=== PATIENT | female | born 1970 | race Caucasian/White ===

== ENCOUNTER 2022-09-04 16:35 | Emergency (ER) | payer OTHER, SELFPAY ==
--- NOTE | ~2022-09-04 | XR_ITS ---
XR foot LT min 3V DATE: 09/04/2022 18:15 INDICATION: Ankle and foot pain. No known injury. TECHNIQUE: 4 views COMPARISON: None FINDINGS: Prominent plantar and posterior calcaneal enthesopathy. There is osteoarthritis at the tibiotalar joint. No recent fracture or dislocation, periosteal reaction or bone destruction. No erosive change. IMPRESSION: Prominent plantar and posterior calcaneal enthesopathy Reviewed, dictated and finalized at location A. NCE ASSOCIATE
--- NOTE | ~2022-09-04 | US_ITS ---
Duplex Sonography of the left extremity: Indication: Pain and swelling Sagittal and transverse B-mode images as well as color-flow imaging were performed on the left femora l and popliteal veins. B-mode examination was done without and with compression in the transverse pl ane. There is good visualization of the common femoral, proximal profunda femoral, superficial femor al, greater saphenous, and popliteal veins. Normal flow was seen on color-flow imaging. Normal compr essibility was demonstrated. Visualized calf veins are also patent. The contralateral common femoral vein was evaluated for comparison, and demonstrated normal flow and compressibility. Impression: No DVT identified. Reviewed, dictated and finalized at location M. UARD LOOM FIXER Impression: No DVT identified.
--- NOTE | ~2022-09-04 | XR_ITS ---
XR ankle LT min 3V DATE: 09/04/2022 18:15 INDICATION: Ankle and foot pain. No known injury. TECHNIQUE: 4 views of left ankle COMPARISON: None FINDINGS: Prominent plantar and posterior calcaneal enthesopathy. There is tibiotalar osteoarthritis. No fracture or dislocation of the ankle or disruption of the ankle mortise. No periosteal reaction or bone destruction. IMPRESSION: Tibiotalar osteoarthritis Prominent plantar and posterior calcaneal enthesopathy Reviewed, dictated and finalized at location A. THERAPY SPECIALIST
[2022-09-04 17:38] VITALS: BP 123/83; PULSE 69; RESP 16; TEMP 37; O2SAT 99
--- NOTE | 2022-09-04 17:51 | ED.LOWEXIN ---
HPI - Extremity Injury (Lower) General Chief Complaint: Extremity Injury, Lower Stated Complaint: left leg DVT? Time Seen by Provider: 09/04/22 17:41 History of Present Illness HPI Narrative: 52-year-old female history of migraine headaches, hypertension and depression presents to the emergency room for evaluation of left foot pain. Patient states last night she gradual onset of left foot pain that radiated into her calf. Patient states that she noticed some redness to the top of her foot that has since gone away and some mild swelling. Ambulating makes the pain worse. Patient was seen at her PCP office earlier today, and was encouraged to come here to rule out for DVT. No known injury or trauma Related Data Home Medications Medication Instructions Recorded Confirmed escitalopram oxalate 10 mg tablet 10 mg PO DAILY 12/26/21 12/26/21 hydrochlorothiazide 25 mg tablet 25 mg PO DAILY 12/26/21 12/26/21 pramipexole 0.25 mg tablet 0.25 mg PO TID 12/26/21 12/26/21 topiramate 25 mg tablet 25 mg PO BID 12/26/21 12/26/21 Allergies Allergy/AdvReac Type Severity Reaction Status Date / Time amoxicillin Allergy Unknown Hives Verified 12/26/21 10:01 Penicillins Allergy Unknown hives Verified 12/26/21 10:01 Review of Systems Review of Systems: CONSTITUTIONAL: Denies fever, chills, or sweats. EYES: Denies visual changes, redness, or discharge. ENT: Denies rhinorrhea, congestion, sore throat, or otalgia. CARDIOVASCULAR: Denies chest pain, palpitations, or edema. RESPIRATORY: Denies cough or dyspnea. GASTROINTESTINAL: Denies abdominal pain, nausea, vomiting, or diarrhea. GENITOURINARY: Denies dysuria or hematuria. SKIN: Denies rash or itching. MUSCULOSKELETAL: Reports left foot pain, left ankle pain NEUROLOGIC: Denies headache, numbness, dizziness, or weakness. PSYCHIATRIC: Denies anxiety or depression. [facility] Past Medical History Medical History Depression History of hypertension Surgical History Surgical History Delivery by section H/O: hysterectomy oopherectomy / bladder mesh Family History Family History Mother Family history of thyroid disease Family history of hyperthyroidism Father Depression Hypertension Family history of elevated blood lipids Sibling Family history of elevated blood lipids Grandparent Family history of malignant neoplasm of breast Family history of heart disease in male family member before age 55 Other Family history of allergic disorder Family history of cardiovascular disease Social History Social History Smoking status: Former smoker Smoking end date: 09/16/13 Alcohol intake: current Drinks per week: 1 Substance use: never Substance use type: does not use Additional living arrangements comments: 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 HEAD: Normocephalic, atraumatic. EYES: Conjunctivae normal, PERRLA and EOMI. CHEST: Clear to auscultation. No respiratory distress. No wheezes rales or rhonchi. HEART: Regular rate and rhythm. No murmur heard. Normal peripheral pulses. EXTREMITIES: Left foot:+TTP with minimal STS to dorsal surface; pain radiates to dorsum of midfoot to lateral surface to achilles tendon; no obvious bony abnormality or bony tenderness, full range of motion the ankle joint, no joint laxity noted, no erythema noted SKIN: Warm, dry, no rash. No noted wounds NEURO: No focal deficits. Alert and oriented x3. MAEW. CN's II-XI intact bilaterally, antalgic gait
[2022-09-04 19:20] VITALS: BP 136/80; PULSE 86; RESP 16; TEMP 36.7; O2SAT 100
== END 2022-09-04 19:24 | disposition home or self-care (01) ==
PROVIDERS: Emergency Provider Nurse Practitioner Family
DX: M10.9 Gout, unspecified (principal); I10 Essential (primary) hypertension; F32.A Depression, unspecified; Z87.891 Personal history of nicotine dependence; M19.072 Primary osteoarthritis, left ankle and foot; M77.8 Other enthesopathies, not elsewhere classified; M77.32 Calcaneal spur, left foot
CPT/HCPCS: 73610; 73630; 93971; 96372; 99284; J1100